=== PATIENT | male | born 1960 | race Caucasian/White ===

== ENCOUNTER 2020-01-07 14:07 | Inpatient (IN) | payer BC ==
[~2020-01-07] VITALS: Ht 185.4 cm; Wt 113.6 kg
[2020-01-07] MEDS ORDERED: iohexol 350MG/ML 100ml bottle IV ONE (14:20)
--- NOTE | 2020-01-07 14:49 | NUR ---
WHILE PT WAS IN ROUTE TO THE ER, HIS DAUGHTER ATIYA COLON CALLED WANTING INFORMATION. SHE WAS INFORMED THAT INFORMATION REGARDING HER FATHER COULD NOT BE GIVEN DUE HIM NOT ARRIVING OF YET AND THAT WE NEED HIS [employer] PERMISION TO GIVE HER INFORMATION ON THE PT'S CURRENT STATUS. PT ARRIVED AND WAS NOTIFIED THAT HIS DAUGHTER CALLED. PT GAVE PERMISSION TO CALL HIS DAUGHTER BACK AND TELL HER SHE IS DOING FINE, BEING TESTED AND HE WILL CALL HER BACK RATNA, ONLY. PT ALSO STATED THAT TO GIVE HIS DAUGHTERS MOTHER THE SAME INFORMATION ONLY. DAUGHTER WAS CALLED BACK AND INFORMED HER THE PT ARRIVED SAFELY, HAS BEEN GOING UNDER TESTING AND IS DOING WELL AND WILL CALL HER SOON HE POSSIBLY CAN. PT'S DAUGHTER STATED UNDERSTANDING.
[2020-01-07] MEDS ORDERED: aspirin 325mg tablet PO ONE (14:50)
[2020-01-07 14:58] LABS: BASOPHILS # (AUTO) 0.1 X10'3 (0-0.2); BASOPHILS % (AUTO) 0.9 % (0-1); EOSINOPHILS # (AUTO) 0.1 X10'3 (0-0.9); EOSINOPHILS % (AUTO) 1.1 % (0-6); HEMATOCRIT 47.5 % (42.0-52.0); HEMOGLOBIN 16.4 g/dl (14.0-17.9); LYMPHOCYTES # (AUTO) 1.2 X10'3 (1.1-4.8); LYMPHOCYTES % (AUTO) 12.9 % (21-51); MEAN CORPUSCULAR HEMOGLOBIN 32.4 PG (27.0-31.0); MEAN CORPUSCULAR HGB CONC 34.6 g/dL (33.0-36.5); MEAN CORPUSCULAR VOLUME 93.8 FL (78-98); MEAN PLATELET VOLUME 8.2 FL (7.4-10.4); MONOCYTES # (AUTO) 0.6 X10'3 (0-0.9); MONOCYTES % (AUTO) 6.7 % (2-12); NEUTROPHILS # (AUTO) 7.2 X10'3 (1.8-7.7); NEUTROPHILS % (AUTO) 78.4 % (42-75); PLATELET COUNT 186 X10'3 (140-440); RED BLOOD COUNT 5.06 X10'6 (4.70-6.10); RED CELL DISTRIBUTION WIDTH 13.5 % (11.5-14.5); WHITE BLOOD COUNT 9.2 X10'3 (4.5-11.0)
[2020-01-07 15:09] LABS: PARTIAL THROMBOPLASTIN TIME 32 SECONDS (22-32)
[2020-01-07 15:11] LABS: ALANINE AMINOTRANSFERASE 27 U/L (12-78); ALBUMIN 3.6 G/DL (3.4-5.0); ALKALINE PHOSPHATASE 69 IU/L (46-116); ANION GAP 9 (8-16); ASPARTATE AMINO TRANSFERASE 22 U/L (10-37); BILIRUBIN,TOTAL 0.3 MG/DL (0.1-1.0); BLOOD UREA NITROGEN 21 MG/DL (7-18); BUN/CREATININE RATIO 21.4 (5.4-32.0); CALCIUM 9.1 MG/DL (8.5-10.1); CHLORIDE 105 MMOL/L (99-107); CREATININE 0.98 MG/DL (0.60-1.10); GLUCOSE 113 MG/DL (70-104); SODIUM 137 MMOL/L (135-145); TOTAL CARBON DIOXIDE 23.4 MMOL/L (24-32); TOTAL PROTEIN 7.1 G/DL (6.4-8.2); eGFR 79 ML/MIN
--- NOTE | 2020-01-07 15:12 | NUR ---
KALPANA Nix RN WITH PT TO CT SCAN. PT BACK IN ROOM
[2020-01-07 15:14] LABS: TROPONIN I < 0.04 NG/ML (0.0-0.05)
[2020-01-07] MEDS ORDERED: METO50TA7 PO (15:18)
[2020-01-07] MEDS ORDERED: ASCO-105 PO (15:18)
[2020-01-07] MEDS ORDERED: clopidogrel 300mg tablet PO ONE (15:20)
--- NOTE | 2020-01-07 15:32 | NUR ---
PT DOES NOT WANT US TO RELEASE HEALTH INFORMATION TO FAMILY AT THIS TIME.
[2020-01-07] MEDS ORDERED: LORazepam 2 mg/ml vial IV PRN (15:55)
[2020-01-07] MEDS ORDERED: potassium CL 10mEq/100ml bag 100 ML IV PRN ×2 (15:55)
[2020-01-07] MEDS ORDERED: magnesium Cl slow-release 64mg tablet PO PRN (15:55)
[2020-01-07] MEDS ORDERED: LORazepam 1 MG tablet PO PRN (15:55)
[2020-01-07] MEDS ORDERED: ondansetron/PF 4mg/2ml inj IV PRN (15:55)
[2020-01-07] MEDS ORDERED: magnesium 4gm in 100ml NS 100 ML IV PRN (15:55)
[2020-01-07] MEDS ORDERED: morphine 2 MG/ML inj. syringe IV PRN (15:55)
[2020-01-07] MEDS ORDERED: dextrose 50%-water 50ml dispensing syringe IV PRN (15:55)
[2020-01-07] MEDS ORDERED: HYDROcodone/acetaminophen 5mg/325mg tablet PO PRN (15:55)
[2020-01-07] MEDS ORDERED: acetaminophen 325mg tablet PO PRN ×2 (15:55)
[2020-01-07] MEDS ORDERED: potassium Cl 20 mEq SR tablet PO PRN ×2 (15:55)
[2020-01-07] MEDS ORDERED: magnesium 2GM in 50ml NS 50 ML IV PRN (15:55)
[2020-01-07 16:12] LABS: ETHANOL < 0.010 GM/DL (0.0-0.010)
[2020-01-07] MEDS: normal saline 1000ml 1,000 ML IV SCH (16:47)
--- NOTE | 2020-01-07 17:19 | NUR ---
Patient in room ED 2. I have received report from Kiersten CURRY and had the opportunity to ask questions and assume patient care.
--- NOTE | 2020-01-07 18:00 | NUR ---
Patient in room ORTHO 4014. I have received report from ANTOINETTE Byers and had the opportunity to ask questions and assume patient care.
--- NOTE | 2020-01-07 18:05 | NUR ---
Problems reprioritized. Patient report given, questions answered & plan of care reviewed with Gabrielle CURRY.
[2020-01-07 18:48] VITALS: BP 164/87
[2020-01-07] MEDS: docusate sod 100mg capsule PO SCH (20:00)
[2020-01-07] MEDS: K and/or MAG REPLACEMENT MC SCH (20:00)
[2020-01-07 20:01] VITALS: BP 155/82
[2020-01-07 20:51] VITALS: BP 152/98
[2020-01-07] MEDS: heparin, porcine 5000 units/ml vial SQ SCH (20:54)
[2020-01-07] MEDS ORDERED: metoprolol succinate 25mg (24-HOUR) SR. Tablet PO SCH (21:00)
[2020-01-07 22:00] VITALS: BP 157/88
[2020-01-08 00:01] VITALS: BP 154/82
[2020-01-08 02:00] VITALS: BP 134/73
[2020-01-08 04:01] VITALS: BP 147/92
[2020-01-08 05:13] LABS: URINE AMPHETAMINE SCREEN NEGATIVE (Neg); URINE BARBITUATE SCREEN NEGATIVE (Neg); URINE BENZODIAZEPINES SCREEN NEGATIVE (Neg); URINE CANNABINOID SCREEN NEGATIVE (Neg); URINE COCAINE SCREEN NEGATIVE (Neg); URINE METHADONE SCREEN NEGATIVE (Neg); URINE OPIATE SCREEN NEGATIVE (Neg); URINE PHENCYCLIDINE SCREEN NEGATIVE (Neg)
[2020-01-08] MEDS: normal saline 1000ml 1,000 ML IV SCH (06:11)
--- NOTE | 2020-01-08 06:15 | NUR ---
Problems reprioritized. Patient report given, questions answered & plan of care reviewed with ANTOINETTE Gomez.
--- NOTE | 2020-01-08 06:20 | NUR ---
Patient in room ORTHO 4014. I have received report from Gabrielle and had the opportunity to ask questions and assume patient care.
[2020-01-08 06:39] LABS: BASOPHILS # (AUTO) 0.1 X10'3 (0-0.2); EOSINOPHILS # (AUTO) 0.3 X10'3 (0-0.9); EOSINOPHILS % (AUTO) 4.4 % (0-6); LYMPHOCYTES # (AUTO) 1.3 X10'3 (1.1-4.8); LYMPHOCYTES % (AUTO) 22.6 % (21-51); MEAN CORPUSCULAR HEMOGLOBIN 31.9 PG (27.0-31.0); MEAN CORPUSCULAR HGB CONC 34.2 g/dL (33.0-36.5); MEAN CORPUSCULAR VOLUME 93.5 FL (78-98); MEAN PLATELET VOLUME 8.5 FL (7.4-10.4); MONOCYTES # (AUTO) 0.6 X10'3 (0-0.9); MONOCYTES % (AUTO) 10.7 % (2-12); NEUTROPHILS # (AUTO) 3.7 X10'3 (1.8-7.7); NEUTROPHILS % (AUTO) 61.3 % (42-75); PLATELET COUNT 170 X10'3 (140-440); RED BLOOD COUNT 4.71 X10'6 (4.70-6.10); RED CELL DISTRIBUTION WIDTH 13.4 % (11.5-14.5)
[2020-01-08 07:08] LABS: ALANINE AMINOTRANSFERASE 24 U/L (12-78); ALBUMIN/GLOBULIN RATIO 0.9 (1.1-1.5); ALKALINE PHOSPHATASE 58 IU/L (46-116); ANION GAP 8 (8-16); ASPARTATE AMINO TRANSFERASE 16 U/L (10-37); BILIRUBIN,TOTAL 0.7 MG/DL (0.1-1.0); BLOOD UREA NITROGEN 15 MG/DL (7-18); CALCIUM 7.8 MG/DL (8.5-10.1); CHLORIDE 107 MMOL/L (99-107); CHOLESTEROL 156 MG/DL (0-200); CREATININE 0.94 MG/DL (0.60-1.10); GLUCOSE 105 MG/DL (70-104); HDL CHOLESTEROL 39 MG/DL (35-60); LDL CHOLESTEROL 116 MG/DL (50-100); MAGNESIUM 1.9 MG/DL (1.5-2.4); POTASSIUM 4.2 MMOL/L (3.5-5.1); SODIUM 140 MMOL/L (135-145); TOTAL PROTEIN 6.2 G/DL (6.4-8.2); TRIGLYCERIDES 96 MG/DL (20-135); eGFR 83 ML/MIN
[2020-01-08] MEDS: docusate sod 100mg capsule PO SCH (07:26)
[2020-01-08] MEDS: heparin, porcine 5000 units/ml vial SQ SCH (07:28)
[2020-01-08] MEDS: K and/or MAG REPLACEMENT MC SCH (08:00)
[2020-01-08 08:15] VITALS: BP 180/92
[2020-01-08] MEDS ORDERED: CLOP75TA35 PO (10:51)
[2020-01-08] MEDS ORDERED: ASPI-1 PO (10:51)
[2020-01-08] MEDS ORDERED: LISI-604 PO (10:52)
[2020-01-08] MEDS ORDERED: PRAV10TA39 PO (10:55)
[2020-01-08] MEDS ORDERED: ASPI-1265 PO (11:38)
--- NOTE | 2020-01-08 14:24 | NUR ---
Reviewed discharge instructions with pt. Pt is alert, oriented and does not have concerns at this time. All of pt's belongings were returned to pt. Called in new med to [facility] pharmacy. Pt was wheeled downstairs to be driven home by his employer.
[2020-01-09] MEDS ORDERED: clopidogrel 75mg tablet PO SCH (08:00)
[2020-01-09] MEDS ORDERED: aspirin 325mg tablet PO SCH (08:30)
== END 2020-01-08 14:11 | disposition home or self-care (01) | DRG 69 ==
LOC: ER 14:08 → ED HOLD 15:53 → EDBEDREQ 16:59 → ORTHO 4S 18:05
PROVIDERS: ADMIT Internal Medicine; ATTEND Internal Medicine
DX: G45.9 Transient cerebral ischemic attack, unspecified (principal); I10 Essential (primary) hypertension; N28.9 Disorder of kidney and ureter, unspecified; F17.200 Nicotine dependence, unspecified, uncomplicated; E66.9 Obesity, unspecified; F10.20 Alcohol dependence, uncomplicated; Z68.33 Body mass index [BMI] 33.0-33.9, adult
CPT/HCPCS: 36415; 70450; 70496; 70498; 70544; 70551; 71045; 80053; 80061; 80305; 80320; 82948; 83735; 84484; 85025; 85610; 85730; 87081; 93005; 93306; 97161; 97530; 99285; G0378; J1644; J7030; Q9967